=== PATIENT | male | born 1970 | race Two or more races ===

== ENCOUNTER 2017-02-02 11:32 | Inpatient (IN) | payer OTHER ==
[~2017-02-02] VITALS: Ht 177.8 cm; Wt 123.0 kg
[2017-02-02 12:57] LABS: Basophils # (auto) 0 uL; Basophils % (auto) 0.1 % (0.0-2.0); CONDITION Y; Eosinophils # (auto) 0 uL; Eosinophils % (auto) 0.2 % (0.0-7.0); Hematocrit 46.6 % (41.0-53.0); Hemoglobin 16.2 g/dL (13.5-17.5); Lymphocytes # (auto) 1.8 uL; Lymphocytes % (auto) 12.6 % (10.0-50.0); Mean Corpuscular Hemoglobin 33.1 pg (28.0-32.0); Mean Corpuscular Hgb Conc. 34.7 g/dL (32.0-36.0); Mean Corpuscular Volume 95.4 fL (80.0-100.0); Mean Platelet Volume 7.2 fL (7.4-10.4); Monocytes # (auto) 0.4 uL; Monocytes % (auto) 2.7 % (0.0-12.0); Neutrophils # (auto) 12.3 uL; Neutrophils % (auto) 84.4 % (37.0-80.0); Platelet Count (auto) 208 10^3/uL (140-450); Red Cell Distribution Width 13.5 % (11.6-16.0); White Blood Cell 14.6 10^3/uL (4.4-10.8)
[2017-02-02 13:09] LABS: Urine Bilirubin Negative (Negative); Urine Color Yellow (Yellow); Urine Hyaline Cast FEW /lpf (0 - 2); Urine Mucus FEW (None Seen); Urine Nitrite Negative (Negative); Urine RBC 1 /hpf (0 - 3); Urine Urobilinogen Normal (Negative)
[2017-02-02 13:30] LABS: Albumin 3.1 g/dL (3.4-5.0); BUN/Creatinine Ratio 11.4; Calcium 8.7 mg/dL (8.5-10.1); Total Protein 7.5 g/dL (6.4-8.2)
[2017-02-02 13:30] LABS: Urine Blood 1+ /uL (Negative); Urine Glucose 4+ mg/dL (Normal); Urine Ketone 4+ (Negative)
[2017-02-02 13:32] LABS: Potassium 4.7 mmol/L (3.5-5.1)
[2017-02-02] MEDS ORDERED: SODIUM CHLORIDE 0.9% 1,000 ML IVB ONE (15:04)
[2017-02-02] MEDS ORDERED: ONDANSETRON ODT 4 MG TAB PO ONE (15:15)
[2017-02-02 15:43] LABS: INR 0.98 (0.9-1.15); Partial Thromboplastin Time 31.9 sec (22.64-33.71); Prothrombin Time 10.7 sec (9.37-12.3)
[2017-02-02] MEDS ORDERED: PANTOPRAZOLE SODIUM 40 MG/10 ML VIAL IV ONE ×2 (15:45→16:30)
[2017-02-02] MEDS ORDERED: MORPHINE SULF INJ 2 MG/ML SYRINGE 1ML IV ONE (15:45)
[2017-02-02] MEDS ORDERED: cefTRIAXone 1GM/50ML D5W 50 ML IV ONE (16:30)
[2017-02-02] MEDS ORDERED: MORPHINE SULF INJ 2 MG/ML SYRINGE 1ML IV PRN (16:30)
[2017-02-02] MEDS ORDERED: FAMOTIDINE (10MG/ML) 2ML VL IV ONE (16:30)
[2017-02-02] MEDS ORDERED: DEXTROSE (50%) 50ML SYRG IV PRN (16:30)
[2017-02-02] MEDS ORDERED: SODIUM CHLORIDE 0.9% 2,000 ML IV ONE (16:30)
[2017-02-02] MEDS ORDERED: ACETAMINOPHEN 325 MG TAB PO PRN (16:30)
[2017-02-02] MEDS ORDERED: VANCOMYCIN PER PHARMACY 0 MG IV SCH (16:30)
[2017-02-02] MEDS ORDERED: TEMAZEPAM 15 MG CAP PO PRN (16:30)
[2017-02-02] MEDS ORDERED: NITROGLYCERIN 0.4 MG SL TAB SL PRN (16:30)
[2017-02-02] MEDS: SODIUM CHLORIDE 0.9% 1,000 ML IV SCH (18:18)
[2017-02-02] MEDS: Boost Glucose Control 8 Ounces PO SCH (18:19)
[2017-02-02] MEDS: LISINOPRIL 5 MG TAB PO SCH (18:37)
[2017-02-02] MEDS: ACCU-CHEK COMFORT CURVE STRIP VI SCH ×2 (18:38→22:24)
[2017-02-02] MEDS: InsuLIN REG 1unit/0.01ml Soln (100units/ml) SC SCH ×2 (18:43→22:27)
[2017-02-02] MEDS: VANCOMYCIN 1,250 MG in D5W 5% 250 ML IV SCH (20:09)
[2017-02-02] MEDS: MORPHINE SULF INJ 2 MG/ML SYRINGE 1ML IV PRN (21:04)
[2017-02-02] MEDS: ONDANSETRON HCL 4 MG/2 ML VIAL IV PRN (21:04)
[2017-02-02] MEDS: ATORVASTATIN 20 MG TAB PO SCH (22:24)
[2017-02-03] MEDS: SODIUM CHLORIDE 0.9% 1,000 ML IV SCH ×3 (01:39→16:24)
[2017-02-03] MEDS: MORPHINE SULF INJ 2 MG/ML SYRINGE 1ML IV PRN (01:59)
[2017-02-03] MEDS: ONDANSETRON HCL 4 MG/2 ML VIAL IV PRN (01:59)
[2017-02-03] MEDS: VANCOMYCIN 1,250 MG in D5W 5% 250 ML IV SCH ×2 (06:00→17:31)
[2017-02-03] MEDS: InsuLIN REG 1unit/0.01ml Soln (100units/ml) SC SCH ×4 (06:53→21:06)
[2017-02-03] MEDS: ACCU-CHEK COMFORT CURVE STRIP VI SCH ×4 (06:53→21:07)
[2017-02-03] MEDS: Boost Glucose Control 8 Ounces PO SCH ×3 (08:17→17:58)
[2017-02-03 08:23] LABS: CONDITION Y; Hematocrit 36.6 % (41.0-53.0); Hemoglobin 12.8 g/dL (13.5-17.5); Mean Corpuscular Hemoglobin 32.9 pg (28.0-32.0); Mean Corpuscular Hgb Conc. 34.9 g/dL (32.0-36.0); Mean Corpuscular Volume 94.2 fL (80.0-100.0); Mean Platelet Volume 8.1 fL (7.4-10.4); Platelet Count (auto) 172 10^3/uL (140-450); Red Cell Distribution Width 13.6 % (11.6-16.0); SUSPECT SEE PRINTOUT; White Blood Cell 9.3 10^3/uL (4.4-10.8)
[2017-02-03 08:53] LABS: Albumin 2.4 g/dL (3.4-5.0); BUN/Creatinine Ratio 14.5; Bilirubin, Total 0.7 mg/dL (0.2-1.0); Calcium 7.7 mg/dL (8.5-10.1); Total Protein 6.3 g/dL (6.4-8.2)
[2017-02-03 09:06] LABS: Potassium 3.9 mmol/L (3.5-5.1)
[2017-02-03 09:32] LABS: Metamyelocytes % 0; Myelocytes % 0; Promyelocytes % 0; Reactive Lymphocytes 0
[2017-02-03] MEDS: LISINOPRIL 5 MG TAB PO SCH (10:00)
[2017-02-03] MEDS ORDERED: FAMOTIDINE (10MG/ML) 2ML VL IV SCH (10:00)
[2017-02-03] MEDS: MULTIPLE VITAMIN TAB PO SCH (10:00)
[2017-02-03] MEDS: PANTOPRAZOLE SODIUM 40 MG/10 ML VIAL IV SCH (11:58)
[2017-02-03] MEDS: cefTRIAXone 1GM/50ML D5W 50 ML IV SCH (11:59)
[2017-02-03 13:56] LABS: Platelet Estimate Adequate
[2017-02-03 17:54] VITALS: BP 119/70
[2017-02-03 20:00] VITALS: BP 116/66
[2017-02-03] MEDS: ATORVASTATIN 20 MG TAB PO SCH (21:07)
[2017-02-03] MEDS: HYDROcodone-ACET 5/325MG TAB PO PRN (21:09)
[2017-02-03 22:00] VITALS: BP 116/66
[2017-02-04] MEDS: SODIUM CHLORIDE 0.9% 1,000 ML IV SCH ×2 (01:41→11:52)
[2017-02-04] MEDS: HYDROcodone-ACET 5/325MG TAB PO PRN ×2 (02:14→09:27)
[2017-02-04 05:00] VITALS: BP 127/75
[2017-02-04] MEDS: VANCOMYCIN 1,250 MG in D5W 5% 250 ML IV SCH (05:48)
[2017-02-04 05:51] LABS: Basophils # (auto) 0 uL; Basophils % (auto) 0.2 % (0.0-2.0); CONDITION Y; Eosinophils # (auto) 0.1 uL; Hematocrit 35.1 % (41.0-53.0); Hemoglobin 12.1 g/dL (13.5-17.5); Lymphocytes # (auto) 1.4 uL; Mean Corpuscular Hemoglobin 32.7 pg (28.0-32.0); Mean Corpuscular Hgb Conc. 34.6 g/dL (32.0-36.0); Mean Corpuscular Volume 94.4 fL (80.0-100.0); Mean Platelet Volume 8.3 fL (7.4-10.4); Monocytes # (auto) 0.3 uL; Monocytes % (auto) 4.7 % (0.0-12.0); Neutrophils # (auto) 4.6 uL; Neutrophils % (auto) 71.1 % (37.0-80.0); Platelet Count (auto) 138 10^3/uL (140-450); Red Cell Distribution Width 13.2 % (11.6-16.0); White Blood Cell 6.5 10^3/uL (4.4-10.8)
[2017-02-04] MEDS ORDERED: METF-370 PO (06:03)
[2017-02-04] MEDS ORDERED: ATOR40TA52 PO (06:03)
[2017-02-04] MEDS ORDERED: LISI2.5T47 PO (06:03)
[2017-02-04] MEDS: ACCU-CHEK COMFORT CURVE STRIP VI SCH ×2 (06:42→11:51)
[2017-02-04] MEDS: InsuLIN REG 1unit/0.01ml Soln (100units/ml) SC SCH ×2 (06:43→11:51)
[2017-02-04 06:54] LABS: Albumin 2.2 g/dL (3.4-5.0); BUN/Creatinine Ratio 12.5; Bilirubin, Total 0.4 mg/dL (0.2-1.0); Calcium 7.7 mg/dL (8.5-10.1); Potassium 3.5 mmol/L (3.5-5.1); Total Protein 6.1 g/dL (6.4-8.2)
[2017-02-04 08:00] VITALS: BP 111/67
[2017-02-04 09:00] VITALS: BP 111/67
[2017-02-04] MEDS: PANTOPRAZOLE SODIUM 40 MG/10 ML VIAL IV SCH (09:24)
[2017-02-04] MEDS: cefTRIAXone 1GM/50ML D5W 50 ML IV SCH (09:24)
[2017-02-04] MEDS: MULTIPLE VITAMIN TAB PO SCH (09:24)
[2017-02-04] MEDS: LISINOPRIL 5 MG TAB PO SCH (09:27)
[2017-02-04] MEDS: Boost Glucose Control 8 Ounces PO SCH ×2 (09:30→15:54)
[2017-02-04 13:00] VITALS: BP 110/64
[2017-02-04] MEDS ORDERED: HYDR-4663 PO (13:34)
[2017-02-04 15:10] VITALS: BP 110/64
[2017-02-04 17:00] VITALS: BP 145/87
== END 2017-02-04 15:50 | disposition home or self-care (01) | DRG 871 ==
LOC: ER 11:32 → TELE 11:33 → TELE-E-ADS 02-03 08:41 → TELE-WESTW 02-03 16:58 → WEST WING 02-04 01:33
PROVIDERS: ADMIT Internal Medicine; ATTEND Nurse Practitioner Acute Care
DX: A41.9 Sepsis, unspecified organism (principal); K85.90 Acute pancreatitis without necrosis or infection, unspecified; E44.0 Moderate protein-calorie malnutrition; E87.1 Hypo-osmolality and hyponatremia; E86.0 Dehydration; E11.9 Type 2 diabetes mellitus without complications; E66.9 Obesity, unspecified; I10 Essential (primary) hypertension; E78.5 Hyperlipidemia, unspecified; K29.90 Gastroduodenitis, unspecified, without bleeding; Z79.84 Long term (current) use of oral hypoglycemic drugs; Z82.49 Family history of ischemic heart disease and other diseases of the circulatory system; Z68.38 Body mass index [BMI] 38.0-38.9, adult; Z71.3 Dietary counseling and surveillance
CPT/HCPCS: 36415; 71020; 74176; 80053; 80202; 81001; 82150; 82962; 83036; 83605; 83690; 83735; 84443; 85007; 85025; 85027; 85610; 85730; 87040; 87045; 87493; 87899; 93005; 94761; 96361; 96365; 96375; C9113; J0696; J1815; J2405; J3490; J7060; Q0162

== ENCOUNTER 2022-06-20 02:19 | Emergency (ER) | payer MEDICAID, OTHER ==
[~2022-06-20] VITALS: Ht 177.8 cm; Wt 103.0 kg
[~2022-06-20 02:19] MED LIST: ATOR40TA52 PO; HYDR-4833 PO; LISI2.5T47 PO; METF-370 PO
[2022-06-20 02:53] LABS: Basophils # (auto) 0.1 10 ^3/uL (0-0.2); Eosinophils # (auto) 0.1 10 ^3/uL (0-0.8); Eosinophils % (auto) 1.6 % (0.0-7.0); Hematocrit 44.7 % (41.0-53.0); Hemoglobin 15.5 g/dL (13.5-17.5); Lymphocytes # (auto) 2.4 10 ^3/uL (0.4-5.4); Lymphocytes % (auto) 40.9 % (10.0-50.0); Mean Corpuscular Hemoglobin 31.8 pg (28.0-32.0); Mean Corpuscular Hgb Conc. 34.8 g/dL (32.0-36.0); Mean Corpuscular Volume 91.4 fL (80.0-100.0); Monocytes # (auto) 0.3 10 ^3/uL (0-1.3); Neutrophils # (auto) 2.9 10 ^3/uL (1.6-8.6); Neutrophils % (auto) 50.5 % (37.0-80.0); Nucleated Red Blood Cells % 0.5 %; Red Blood Cells 4.89 10^6/uL (4.5-5.90); Red Cell Distribution Width 12.9 % (11.8-14.3); White Blood Cell 5.8 10^3/uL (4.4-10.8)
[2022-06-20 03:09] LABS: INR 0.97 (0.9-1.15); Partial Thromboplastin Time 28.8 sec (24.6-33.4)
[2022-06-20 03:12] LABS: Albumin 3.2 g/dL (3.4-5.0); Calcium 8.4 mg/dL (8.5-10.1); Magnesium 1.7 mg/dL (1.6-2.6)
[2022-06-20 03:15] LABS: Potassium 4.1 mmol/L (3.5-5.1)
[2022-06-20 03:16] LABS: BUN/Creatinine Ratio 17.1; Bilirubin, Total 0.6 mg/dL (0.2-1.0)
[2022-06-20 03:18] LABS: Urine Bacteria NONE SEEN /hpf (None Seen); Urine Blood Negative /uL (Negative); Urine Specific Gravity 1.033 (1.001-1.035); Urine WBC <1 /hpf (0 - 3)
[2022-06-20 03:31] LABS: Total Protein 6.9 g/dL (6.4-8.2)
[2022-06-20] MEDS ORDERED: MORPHINE SULFATE 4 MG/ML SYR/VIAL IV SCH (10:45)
[2022-06-20] MEDS ORDERED: LACTATED RINGER'S 1,000 ML IV ONE (10:45)
[2022-06-20] MEDS ORDERED: IOHEXOL 300 MG/ML 100ML BOTTLE IJ ONE (11:00)
[2022-06-20] MEDS ORDERED: ONDANSETRON HCL 4 MG/2 ML VIAL IV SCH (14:00)
[2022-06-20] MEDS ORDERED: HYDR-4902 PO (14:14)
[2022-06-20] MEDS ORDERED: ONDA-155 PO (14:14)
[2022-06-20] MEDS ORDERED: MORPHINE SULFATE 4 MG/ML SYR/VIAL IV ONE (14:15)
[2022-06-20] MEDS ORDERED: KETOROLAC TROMETH 30 MG/ML 1ML VIAL IV ONE (14:15)
[2022-06-20 14:50] VITALS: BP 153/90
== END 2022-06-20 14:57 | disposition home or self-care (01) ==
LOC: ER 02:19
DX: R10.9 Unspecified abdominal pain (principal); R07.89 Other chest pain; I10 Essential (primary) hypertension; E11.9 Type 2 diabetes mellitus without complications; Z79.899 Other long term (current) drug therapy
CPT/HCPCS: 36415; 71045; 74177; 80053; 81001; 82150; 82962; 83690; 83735; 83880; 84484; 85025; 85610; 85730; 93005; 96361; 96374; 96375; 99285; J1885; J2270; J7030; Q9967